=== PATIENT | male | born 1975 | race African-American/Black ===

== ENCOUNTER → 2022-01-03 | Day surgery (SDC) | payer BC ==
[2021-12-30 10:21] LABS: BASOPHILS % 0.6 % (0.0-1.0); EOSINOPHILS % 0.8 % (0.0-6.0); HEMATOCRIT 43.5 % (38.2-49.6); HEMOGLOBIN 14.6 g/dL (14.0-18.0); LYMPHOCYTES # (AUTO) 2.2 (1.0-3.2); LYMPHOCYTES % 46.8 % (18.0-39.1); MEAN CORPUSCULAR HEMOGLOBIN 30.8 pg (28-32); MEAN CORPUSCULAR HGB CONC 33.6 g/dL (31-35); MEAN CORPUSCULAR VOLUME 91.8 fL (81-99); MONOCYTES # (AUTO) 0.3 (0.2-0.8); MONOCYTES % 6.4 % (4.4-11.3); NEUTROPHILS # (AUTO) 2.1 (2.1-6.9); NEUTROPHILS % 44.3 % (38.7-80.0); PLATELET COUNT 219 x10e3/uL (140-360); RED BLOOD COUNT 4.74 x10e6/uL (4.3-5.7); RED CELL DISTRIBUTION WIDTH 12.3 % (11.7-14.4)
[2021-12-30 10:38] LABS: INR 0.93; PROTHROMBIN TIME 13.1 seconds (11.9-14.5)
[2021-12-30 10:39] LABS: PARTIAL THROMBOPLASTIN TIME 24.3 seconds (23.8-35.5)
[2021-12-30 10:49] LABS: ANION GAP 14.1 mmol/L (8-16); CALCIUM 9.6 mg/dL (8.4-10.2); CREATININE, SERUM 1.34 mg/dL (0.72-1.25); POTASSIUM 4.1 mmol/L (3.5-5.1)
[~2022-01-03] MED LIST: EPHEDRINE SULFATE INJ 50 MG/ML VIAL ONE; EUTHYROX175 MCG PO; FENTANYL CITRATE/PF 100MCG/2 ML INJ ONE; JARDIANCE10 MG PO; KETOROLAC TROMETHAMINE 30 MG/ML VIAL ONE; LIDOCAINE HCL 2% LOCAL INJ 5 ML SDV VIAL INJ ONE; LIPITOR10 MG PO; MIDAZOLAM HCL 2 MG/2 ML VIAL ONE; ONDANSETRON HCL INJ 2MG/ML 2ML 2 MG/ML VIAL ONE; PIOGLITAZONE HC45 MG PO; POVIDONE IODINE 0.05% 0.05 % ML PO ONE; PROPOFOL IV EMULSION 10 MG/ML 20 ML VIAL ONE; SEVOFLURANE INHAL SOLN 250 ML PEN BTL ONE; TADALAFIL20 M1 PO
[2022-01-03] MEDS: FENTANYL CITRATE/PF 100MCG/2 ML INJ ONE (07:58)
[2022-01-03 09:25] VITALS: BP 111/85
== END | disposition home or self-care (01) ==
LOC: OR 05:15
PROVIDERS: ATTEND Specialist
DX: M25.862 Other specified joint disorders, left knee (principal); M22.42 Chondromalacia patellae, left knee; M23.200 Derangement of unspecified lateral meniscus due to old tear or injury, right knee; G47.33 Obstructive sleep apnea (adult) (pediatric); E11.9 Type 2 diabetes mellitus without complications; Z79.84 Long term (current) use of oral hypoglycemic drugs; E03.9 Hypothyroidism, unspecified; E78.5 Hyperlipidemia, unspecified; Z79.899 Other long term (current) drug therapy; Z01.812 Encounter for preprocedural laboratory examination; Z01.810 Encounter for preprocedural cardiovascular examination
CPT/HCPCS: 36415; 80048; 82948; 85025; 85610; 85730; 93005; J0690; J1885; J2001; J2250; J2405; J3010